=== PATIENT | male | born 1955 | race Caucasian/White ===

== ENCOUNTER → 2018-12-17 | Outpatient (CLI) | payer OTHER | END | disposition home or self-care (01) | LOC: PCVCCLINIC 13:59 | PROVIDERS: ATTEND Internal Medicine Cardiovascular Disease | DX: I25.10 Atherosclerotic heart disease of native coronary artery without angina pectoris (principal); E78.5 Hyperlipidemia, unspecified; I10 Essential (primary) hypertension; E11.9 Type 2 diabetes mellitus without complications; R42 Dizziness and giddiness; R09.89 Other specified symptoms and signs involving the circulatory and respiratory systems; E78.00 Pure hypercholesterolemia, unspecified | CPT/HCPCS: 36415; 80061; 93005; G0463 ==

== ENCOUNTER → 2018-12-24 | Outpatient (CLI) | payer OTHER ==
--- NOTE | 2018-12-24 17:15 | PCVCIMAG ---
APPROVED REPORT Study performed: 12/24/2018 15:32:26 Exam: Stress Echocardiogram Indication: CAD s/p PCI Patient Location: Echo lab Stress Nurse: Kim Philippe RN Room #: 2 Status: routine Ht: 5 ft 11 in HR: 70 bpm BP: 128/64 mmHg Rhythm: NSR Medical History Medical History: CAD s/p stent, Diabetes, HTN, Hyperlipidemia Cardiac Risk Factors: HTN, Hyperlipidemia, DM Previous Cardiac Procedures: PCI Pretest Chest Pain Characteristics: No chest pain Exercise History: Physically active Procedure The patient underwent an Exercise Stress Test using the Jeannine Protocol. Blood pressure, heart rate, and EKG were monitored. An Echocardiogram was performed by desktop technician in four stages in quad fashion. At peak stress, four selected images were obtained and placed side by side with resting images for comparison. Stress Test Details Stress Test: Exercise stress testing was performed using a Jeannine protocol. HR Resting HR: 70 bpmMax Heart Rate (APMHR): 155 bpm Max HR Achieved: 146 bpmTarget HR (85% APMHR): 131 bpm % of APMHR: 94 Recovery HR: 96 bpm HR response to stress: Normal HR response to stress BP Resting BP: 128/64 mmHg Max BP: 180/70 mmHg Recovery BP: 142/80 mmHg BP response to stress: Normal blood pressure response to stress. ECG Resting ECG: Sinus Rhythm Stress ECG: Sinus Rhythm, nonspecific ST-T abnormalities ST Change: Eqivocally ischemic Maximum ST Deviation: -0.75 mm Arrhythmia: frequent PVCs with occasional couplets Recovery ECG: Sinus Rhythm, nonspecific ST-T abnormalities Recovery ST Change: Eqivocally ischemic Recovery ST Deviation: -0.75 mm Recovery Arrhythmia: frequent PVCs in trigeminy, quadrigeminy Clinical Reason for Termination: Maximal effort Stress Symptoms: fatigue Exercise duration: 9 min 26 sec Highest Stage Achieved: Stage 4: 4.2 mph at 16% grade. Exercise capacity: 11.5 METs Overall Exercise Capacity for Age: Normal Scale: Active Angina Score: None No complications. Stress ECG Conclusion The patient exercised according to the JEANNINE protocol for9:26 mins; achieving a work level of 11.5 METS. The resting heart rate of 70 bpm kvng to a maximum heart rate of 146 bpm. This value represent 94 % of the maximal, age-predicted heart rate. The resting blood pressure of 128/64 mmHg, kvng to a maximum blood pressure of 180/70 mmHg. The exercise test was stopped due to fatigue. Quintero Treadmill Score is 12.8 which is Low risk. Pre-Stress Echo The resting Echocardiogram showed normal left ventricular contractility with an estimated Ejection Fraction of about 50-55%. Mild hypokinesis of the distal anterior wall and apex. Post-Stress Echo The stress Echocardiogram showed abnormal left ventricular contractility with an estimated Ejection Fraction of about 55-60%. The stress Echocardiogram demonstrated wall motion abnormality in the distal anterior,septal and apex marvin. Conclusion Clinical Response: Indeterminant Exercise Capacity: Average Stress ECG Response: Equivocal Stress Echo Images: Ischemic Abnormal stress echo study with abnormalities seen in marvin consistent with known lesion. Normal color doppler. No regurgitation or stenosis present on pulmonic, mitral, tricuspid or aortic valves. <Conclusion> Abnormal stress echo study with abnormalities seen in marvin consistent with known lesion. Normal color doppler. No regurgitation or stenosis present on pulmonic, mitral, tricuspid or aortic valves.
--- NOTE | 2018-12-24 17:43 | PCVCIMAG ---
EXAM: BILATERAL CAROTID DUPLEX INDICATION: Carotid Occlusive Disease. Left carotid bruit. FINDINGS: Doppler Measurements (centimeters per second): RIGHT: Peak CCA-83, Peak ECA-76, Diastolic ICA-19, Peak ICA-76, ICA/CCA Ratio-0.9. LEFT: Peak CCA-84, Peak ECA-81, Diastolic ICA-24, Peak ICA-74, ICA/CCA Ratio-0.9. RIGHT CAROTID: The carotid bulb has moderate plaque. The proximal internal carotid artery shows <40% stenosis. The common carotid artery shows no significant stenosis. The external carotid artery shows no significant stenosis. LEFT CAROTID: The carotid bulb has moderate plaque. The proximal internal carotid artery shows <40% stenosis. The common carotid artery shows no significant stenosis. The external carotid artery shows no significant stenosis. Antegrade flow in both vertebral arteries. IMPRESSION: <40% stenosis of the right internal carotid artery with moderate plaque. <40% stenosis of the left internal carotid artery with moderate plaque. LOC:[place] [id number]
== END | disposition home or self-care (01) ==
LOC: PCVCIMAG 14:23
PROVIDERS: ATTEND Internal Medicine Cardiovascular Disease
DX: I65.23 Occlusion and stenosis of bilateral carotid arteries (principal); I25.10 Atherosclerotic heart disease of native coronary artery without angina pectoris; E11.9 Type 2 diabetes mellitus without complications; Z82.49 Family history of ischemic heart disease and other diseases of the circulatory system; I10 Essential (primary) hypertension
CPT/HCPCS: 93325; 93351; 93880